=== PATIENT | male | born 1965 | race Caucasian/White ===

== ENCOUNTER 2021-10-23 11:42 | Outpatient (CLI) | payer BC, SELFPAY ==
[2021-10-23 22:02] LABS: Chloride* 101 mmol/L (96-114); Potassium* 4.5 mmol/L (3.6-5.1); Sodium* 139 mmol/L (135-149)
[2021-10-23 22:05] LABS: Blood Urea Nitrogen* 17 mg/dL (7-30); Calcium* 9.5 mg/dL (8.4-10.6); Carbon Dioxide* 25 mmol/L (20-32); Creatinine* 0.9 mg/dL (0.5-1.5); Estimated Glomerular Filt Rate 100 ml/min; Glucose* 85 mg/dL (60-115)
[2021-10-23 22:08] LABS: Creatinine Urine 41.8 mg/dL
[2021-10-23 22:12] LABS: Microalbumin Creatinine Ratio 40 mg/g (0-30); Microalbumin Urine 2 mg/dL
[2021-10-23 23:00] LABS: Uric Acid* 8.2 mg/dL (2.2-8.4)
== END 2021-10-23 11:43 | disposition home or self-care (01) ==
PROVIDERS: PCP Physician Assistant Medical; Visit Provider Physician Assistant Medical
DX: Z00.00 Encounter for general adult medical examination without abnormal findings (principal); I10 Essential (primary) hypertension; M10.9 Gout, unspecified; Z13.29 Encounter for screening for other suspected endocrine disorder
CPT/HCPCS: 80048; 82043; 82570; 84443; 84550

== ENCOUNTER 2022-01-26 14:49 | Outpatient (CLI) | payer OTHER, SELFPAY ==
--- NOTE | 2022-01-26 15:00 | CRLHL7_ITS ---
For Patients: As a result of the Century Cures Act, medical imaging exams and procedure reports are released immediately into your electronic medical record. You may view this report before your referring provider. If you have questions, please contact your health care provider. INDICATION: HTN AND SINGLE KIDNEY (LT) TECHNIQUE: Grayscale, color Doppler and power Doppler evaluation of the left renal artery performed. COMPARISON: None available FINDINGS: BILATERAL RENAL ARTERY DUPLEX ULTRASOUND ABDOMINAL AORTA: Peak systolic velocity = 151 cm/s. No aortic aneurysm. RIGHT KIDNEY: Absent. LEFT KIDNEY: 14.1 cm in length. There is no hydronephrosis. Peak systolic velocity = 159 cm/second Renal artery to aortic peak systolic velocity ratio = 1.05 Resistive indices: Less than 0.6 Renal vein = patent IMPRESSION: No evidence of significant renal artery stenosis regarding the solitary left kidney. Dictated by Terence Kat MD @ 01/29/2022 8:50:03 AM (Electronically Signed)
--- NOTE | 2022-01-26 16:00 | CRLHL7_ITS ---
For Patients: As a result of the Century Cures Act, medical imaging exams and procedure reports are released immediately into your electronic medical record. You may view this report before your referring provider. If you have questions, please contact your health care provider. INDICATION: Thyroid lump COMPARISON: none TECHNIQUE: Church scale and color Doppler images were acquired of the thyroid gland. FINDINGS: The thyroid gland demonstrates normal uniform echogenicity and has a smooth outer contour. The right lobe measures 4.9 x 1.5 x 1.6 cm and the left lobe measures 5.0 x 1.8 x 1.7 cm in size. The isthmus measures 4 millimeters. There are no suspicious masses or nodules. The color Doppler images demonstrate normal vascularity. There is no evidence of cervical lymphadenopathy or parathyroid mass. IMPRESSION: Normal thyroid ultrasound. No thyroid nodule. Dictated by Terence Kat MD @ 01/28/2022 12:34:14 PM (Electronically Signed)
== END 2022-01-26 14:50 | disposition home or self-care (01) ==
PROVIDERS: PCP Physician Assistant Medical; Visit Provider Physician Assistant Medical
DX: R22.1 Localized swelling, mass and lump, neck (principal); I10 Essential (primary) hypertension; Z90.5 Acquired absence of kidney
CPT/HCPCS: 76536; 76775; 93975

== ENCOUNTER 2022-05-03 09:07 | Outpatient (CLI) | payer OTHER, SELFPAY ==
[2022-05-03 13:58] LABS: Microalbumin Creatinine Ratio 10 mg/g (0-30); Microalbumin Urine 1 mg/dL
[2022-05-03 14:01] LABS: PSA Screen* 1.15 ng/mL (0.10-4.00)
== END 2022-05-03 09:08 | disposition home or self-care (01) ==
PROVIDERS: PCP Physician Assistant Medical; Visit Provider Physician Assistant Medical
DX: Z00.00 Encounter for general adult medical examination without abnormal findings (principal); I10 Essential (primary) hypertension; M10.9 Gout, unspecified; Z90.5 Acquired absence of kidney; Z12.5 Encounter for screening for malignant neoplasm of prostate
CPT/HCPCS: 82043; 82570; 84153

== ENCOUNTER 2022-05-15 12:43 | Outpatient (CLI) | payer OTHER, SELFPAY ==
--- NOTE | 2022-05-15 13:00 | CRLHL7_ITS ---
For Patients: As a result of the Century Cures Act, medical imaging exams and procedure reports are released immediately into your electronic medical record. You may view this report before your referring provider. If you have questions, please contact your health care provider. INDICATION: Lung cancer screening. History of smoking. TECHNIQUE: Low-dose lung cancer screening non-contrast CT chest. Dose reduction techniques were used. COMPARISON: None. FINDINGS: NODULES: 9 mm ground-glass nodule lingular left upper lobe of the lung image 111 series 6 could be infectious or inflammatory in nature. LUNGS AND PLEURA: Slight curvilinear fibrosis anteromedial right middle lobe of the lung. MEDIASTINUM: Normal. CORONARY ARTERY CALCIFICATION: Present. LIMITED UPPER ABDOMEN: Nonvisualization of the right kidney. This could be on a congenital or postsurgical basis. An ectopic kidney could not be excluded. MUSCULOSKELETAL: Minor spurring lower thoracic/upper lumbar spine. IMPRESSION: 9 mm largely ground-glass nodule lingular left upper lobe of the lung may be infectious or inflammatory in nature. LUNG-RADS CATEGORY: 3: Probably benign. (1-2% risk of malignancy) -Solid nodule(s): Greater than or equal to 6 mm to <8 mm at baseline; or new nodule 4 mm to <6 mm -Sub solid nodule(s): Greater than or equal to 6 mm total diameter with solid component <6 mm; or new <6 mm total diameter -Ground glass nodule(s): Greater than or equal to [address] or new RADIOLOGIST RECOMMENDATION: Low-dose CT chest in 6 months. Please note that all CT scans at this facility use dose modulation, iterative reconstruction, and/or weight-based dosing when appropriate to reduce radiation dose to as low as reasonably achievable. Dictated by Eduard Oviedo MD @ 05/16/2022 9:38:39 AM (Electronically Signed)
--- NOTE | 2022-05-15 13:00 | CRLHL7_ITS ---
For Patients: As a result of the Century Cures Act, medical imaging exams and procedure reports are released immediately into your electronic medical record. You may view this report before your referring provider. If you have questions, please contact your health care provider. INDICATION: Neck mass. TECHNIQUE: CT of the neck soft tissues performed with IV contrast. Contrast: 100 cc Omnipaque 350. COMPARISON: Thyroid ultrasound 01/26/2022. FINDINGS: The nasopharynx, oropharynx and hypopharynx appear unremarkable. The supraglottic, glottic and infraglottic spaces are preserved. The parotid and submandibular glands appear unremarkable. The thyroid gland is normal. No lymphadenopathy identified. The visualized major vascular structures appear intact. The visualized intracranial components appear grossly intact. Visualized orbits and contents appear unremarkable. Mild paranasal sinus mucosal disease. Scattered subsegmental atelectasis within the visualized lung apices. Mild spondylosis of the cervical spine. IMPRESSION: No evident mass or lymphadenopathy within the neck. Please note that all CT scans at this facility use dose modulation, iterative reconstruction, and/or weight-based dosing when appropriate to reduce radiation dose to as low as reasonably achievable. Dictated by Julio César Stokes MD @ 05/16/2022 4:15:50 PM (Electronically Signed)
== END 2022-05-15 12:44 | disposition home or self-care (01) ==
LOC: CT 12:44
PROVIDERS: PCP Physician Assistant Medical; Visit Provider Physician Assistant Medical
DX: R22.1 Localized swelling, mass and lump, neck; Z12.2 Encounter for screening for malignant neoplasm of respiratory organs
CPT/HCPCS: 70491; 71271; Q9967

== ENCOUNTER 2022-11-13 15:45 | Outpatient (CLI) | payer OTHER, SELFPAY ==
--- NOTE | 2022-11-13 16:00 | CRLHL7_ITS ---
For Patients: As a result of the Century Cures Act, medical imaging exams and procedure reports are released immediately into your electronic medical record. You may view this report before your referring provider. If you have questions, please contact your health care provider. Indication: Follow up nodule Technique: Noncontrast CT chest Please note that all CT scans at this facility use dose modulation, iterative reconstruction, and/or weight-based dosing when appropriate to reduce radiation dose to as low as reasonably achievable. Comparison: 05/15/2022 Findings: Visualized thyroid gland is normal. No mediastinal, hilar or axillary adenopathy. Mild coronary artery calcifications. Upper abdomen is unremarkable. There is no hiatal hernia. No pleural or pericardial effusion. A small focus of scarring is present within the inferior lingula. This appears more scar-like when compared to the prior study. There are a few tiny 2 millimeter or less nodules present bilaterally and unchanged. Impression: No suspicious pulmonary nodule. Recommend continued yearly low-dose screening chest CT follow-up in October 2023. Please note that all CT scans at this facility use dose modulation, iterative reconstruction, and/or weight-based dosing when appropriate to reduce radiation dose to as low as reasonably achievable. Dictated by Terence Kat MD @ 11/14/2022 9:25:26 AM (Electronically Signed)
== END 2022-11-13 15:46 | disposition home or self-care (01) ==
LOC: CT 15:47
PROVIDERS: PCP Physician Assistant Medical; Visit Provider Physician Assistant Medical
DX: R91.1 Solitary pulmonary nodule (principal)
CPT/HCPCS: 71250

== ENCOUNTER 2023-10-25 09:00 | Outpatient (CLI) | payer OTHER, SELFPAY | END 2023-10-25 09:01 | disposition home or self-care (01) | LOC: NFLDREF 10-29 15:55 | PROVIDERS: PCP Physician Assistant Medical; Referring Provider Physician Assistant Medical; Visit Provider Physician Assistant Medical | DX: I10 Essential (primary) hypertension (principal); E07.9 Disorder of thyroid, unspecified; I78.0 Hereditary hemorrhagic telangiectasia; Z11.59 Encounter for screening for other viral diseases; Z12.5 Encounter for screening for malignant neoplasm of prostate | CPT/HCPCS: 80053; 80061; 84443; 86703; 86803; 87086; G0103 ==

== ENCOUNTER 2023-12-03 16:11 | Outpatient (CLI) | payer OTHER, SELFPAY ==
--- NOTE | 2023-12-03 16:45 | CRLHL7_ITS ---
For Patients: As a result of the Century Cures Act, medical imaging exams and procedure reports are released immediately into your electronic medical record. You may view this report before your referring provider. If you have questions, please contact your health care provider. INDICATION: Lung cancer screening. TECHNIQUE: Noncontrast CT images of the chest. COMPARISON: CT chest 11/13/2022. FINDINGS: No focal consolidation, pleural effusion, or pneumothorax. Stable 3 mm solid nodule right lower lobe (series 4 image 123). Stable 4 mm solid nodule right lower lobe (series 4 image 129). Few additional punctate solid nodules in the right lower lobe. Stable 3 mm solid nodule left lower lobe (series 4 image 116). The heart size is normal. No pericardial effusion. Coronary artery atherosclerotic calcifications. No mediastinal or hilar lymphadenopathy. Colonic diverticulosis. Borderline diffuse hepatic steatosis. Multilevel thoracic spondylosis. No aggressive osseous lesions. IMPRESSION: Small pulmonary nodules. Lung rads category 2, benign. Continue annual screening with low-dose chest CT in 12 months. Please note that all CT scans at this facility use dose modulation, iterative reconstruction, and/or weight-based dosing when appropriate to reduce radiation dose to as low as reasonably achievable. Dictated by Ryder Jacobo MD @ 12/04/2023 7:43:23 AM (Electronically Signed)
== END 2023-12-03 16:12 | disposition home or self-care (01) ==
LOC: CT 16:11
PROVIDERS: PCP Physician Assistant Medical; Visit Provider Physician Assistant Medical
DX: Z12.2 Encounter for screening for malignant neoplasm of respiratory organs (principal); R91.8 Other nonspecific abnormal finding of lung field; Z87.891 Personal history of nicotine dependence
CPT/HCPCS: 71271

== ENCOUNTER 2023-12-06 15:39 | Outpatient (CLI) | payer OTHER, SELFPAY ==
--- NOTE | 2023-12-06 16:45 | CRLHL7_ITS ---
For Patients: As a result of the Century Cures Act, medical imaging exams and procedure reports are released immediately into your electronic medical record. You may view this report before your referring provider. If you have questions, please contact your health care provider. INDICATION: Hypertension, absent right kidney COMPARISON: None. TECHNIQUE: Church-scale, color, and duplex Doppler ultrasound of the left kidney, renal artery and renal vein. FINDINGS: RIGHT: Absent. LEFT: Parenchyma: Normal echogenicity. Normal thickness. Mild lobation. Renal length: Compensatory hypertrophy, 14.6 cm Cyst: None. Mass: None. Calculi: None. Urinary tract: Not dilated. The main renal artery is patent with a brisk arterial upstroke on duplex Doppler with a maximum peak systolic velocity of 200 cm/s. The renal artery to aorta ratio is 2.3. The intrarenal arcuate artery resistive indices range from 0.56 to 0.61. The renal vein is patent. The upper abdominal aorta is patent with a normal waveform and a peak systolic velocity of 87 cm/s. IMPRESSION: 1. Elevated peak systolic velocity in the distal left renal artery of 200 centimeters/second. The renal artery to aorta ratio is 2.3, normal. No parenchymal compromise. 2. Sonographically, criteria are not technically met for renal artery stenosis, but it may be prudent to be more cautious given the patient`s solitary left kidney. Dictated by Haven Hamilton MD @ 12/09/2023 11:10:28 AM (Electronically Signed)
== END 2023-12-06 15:40 | disposition home or self-care (01) ==
LOC: US 15:40
PROVIDERS: PCP Physician Assistant Medical; Visit Provider Physician Assistant Medical
DX: I10 Essential (primary) hypertension (principal); Z90.5 Acquired absence of kidney
CPT/HCPCS: 76775; 93975

== ENCOUNTER 2023-12-09 10:58 | Outpatient (CLI) | payer OTHER, SELFPAY ==
--- NOTE | 2023-12-09 11:56 | W.ANESCHARGE ---
Anesthesia Charges Start Date/Time Anesthesia Start Date: 12/09/23 Anesthesia Start Time: 11:28 Stop Date/Time Anesthesia Stop Date: 12/09/23 Anesthesia Stop Time: 11:54
--- NOTE | 2023-12-09 12:09 | W.ANESCHARGE ---
Anesthesia Charges Start Date/Time Anesthesia Start Date: 12/09/23 Anesthesia Start Time: 11:28 Stop Date/Time Anesthesia Stop Date: 12/09/23 Anesthesia Stop Time: 11:54
== END 2023-12-09 10:59 | disposition home or self-care (01) ==
LOC: OP CLINIC 10:58
PROVIDERS: PCP Physician Assistant Medical; Visit Provider Internal Medicine
DX: Z12.11 Encounter for screening for malignant neoplasm of colon (principal); D12.3 Benign neoplasm of transverse colon; K64.9 Unspecified hemorrhoids; K57.30 Diverticulosis of large intestine without perforation or abscess without bleeding; Z86.010 Personal history of colon polyps
CPT/HCPCS: 00811; 45385; 88305; J2704

== ENCOUNTER 2024-01-06 18:02 | Outpatient (CLI) | payer OTHER, SELFPAY | END 2024-01-06 18:03 | disposition home or self-care (01) | LOC: NFLDREF 01-09 11:27 | PROVIDERS: PCP Physician Assistant Medical; Referring Provider Physician Assistant Medical; Visit Provider Family Medicine | DX: R50.9 Fever, unspecified (principal); D69.6 Thrombocytopenia, unspecified; I10 Essential (primary) hypertension; R03.0 Elevated blood-pressure reading, without diagnosis of hypertension; D72.819 Decreased white blood cell count, unspecified | CPT/HCPCS: 87086 ==

== ENCOUNTER 2024-01-07 11:13 | Outpatient (CLI) | payer OTHER, SELFPAY | END 2024-01-07 11:14 | disposition home or self-care (01) | PROVIDERS: PCP Physician Assistant Medical; Visit Provider Family Medicine | DX: R50.9 Fever, unspecified (principal) | CPT/HCPCS: 86618; 87040; 87468; 87469; 87484; 87798 ==

== ENCOUNTER 2024-01-10 15:13 | Outpatient (CLI) | payer OTHER, SELFPAY ==
--- NOTE | 2024-01-10 15:30 | CRLHL7_ITS ---
For Patients: As a result of the Century Cures Act, medical imaging exams and procedure reports are released immediately into your electronic medical record. You may view this report before your referring provider. If you have questions, please contact your health care provider. INDICATION: Rule out renal artery stenosis; hypertension. COMPARISON: Ultrasound examination of left kidney and duplex ultrasound evaluation left renal artery 01/26/2022. TECHNIQUE: MR angio abdominal aorta and left renal artery; precontrast T1 and T2 weighted imaging; T2 haste imaging; postcontrast imaging; 24 cc of dotarem contrast was injected. FINDINGS: The right kidney is absent. Normal-appearing left kidney with compensatory hypertrophy. Single renal artery on the left without any evidence of renal artery stenosis. Single renal vein on the left without any abnormalities. No focal hepatic or splenic abnormality. No pancreatic pathology. Gallbladder is unremarkable. No adrenal pathology. No retroperitoneal lymphadenopathy. No evidence of abdominal ascites. IMPRESSION: 1. Right kidney is absent. 2. The left kidney is unremarkable. 3. Single renal artery on the left without any evidence of renal artery stenosis. Dictated by Denver Ayers MD @ 01/13/2024 9:45:42 AM (Electronically Signed)
== END 2024-01-10 15:14 | disposition home or self-care (01) ==
LOC: MRI 15:14
PROVIDERS: PCP Physician Assistant Medical; Visit Provider Physician Assistant Medical
DX: I10 Essential (primary) hypertension (principal); Z90.5 Acquired absence of kidney
CPT/HCPCS: 74185; A9575

== ENCOUNTER 2024-06-11 09:18 | Outpatient (CLI) | payer OTHER, SELFPAY | END 2024-06-11 09:19 | disposition home or self-care (01) | LOC: LKVREF 09:20 | PROVIDERS: PCP Physician Assistant Medical; Visit Provider Physician Assistant Medical | DX: I10 Essential (primary) hypertension (principal); D69.6 Thrombocytopenia, unspecified; N39.0 Urinary tract infection, site not specified | CPT/HCPCS: 80053; 87086 ==

== ENCOUNTER 2024-12-21 16:13 | Outpatient (CLI) | payer OTHER, SELFPAY ==
--- NOTE | 2024-12-21 16:45 | CRLHL7_ITS ---
For Patients: As a result of the Century Cures Act, medical imaging exams and procedure reports are released immediately into your electronic medical record. You may view this report before your referring provider. If you have questions, please contact your health care provider. INDICATION: Lung cancer screening. TECHNIQUE: Low-dose lung cancer screening non-contrast CT chest. Dose reduction techniques were used. COMPARISON: CT 12/03/2023 FINDINGS: NODULES: Small nodules appear stable. LUNGS AND PLEURA: Normal. MEDIASTINUM: Normal. CORONARY ARTERY CALCIFICATION: Present. LIMITED UPPER ABDOMEN: Normal. MUSCULOSKELETAL: Normal. IMPRESSION: 1. Stable exam. LUNG-RADS CATEGORY: 2: Benign. RADIOLOGIST RECOMMENDATION: Continue annual screening, if eligible, with low-dose CT chest in 12 months. Please note that all CT scans at this facility use dose modulation, iterative reconstruction, and/or weight-based dosing when appropriate to reduce radiation dose to as low as reasonably achievable. Dictated by Bonita Lang MD @ 12/22/2024 10:32:32 AM (Electronically Signed)
== END 2024-12-21 16:14 | disposition home or self-care (01) ==
LOC: CT 16:14
PROVIDERS: PCP Physician Assistant Medical; Visit Provider Physician Assistant Medical
DX: Z12.2 Encounter for screening for malignant neoplasm of respiratory organs (principal); Z87.891 Personal history of nicotine dependence; R91.1 Solitary pulmonary nodule
CPT/HCPCS: 71271

== ENCOUNTER 2025-03-15 08:57 | Outpatient (CLI) | payer OTHER, SELFPAY | END 2025-03-15 08:58 | disposition home or self-care (01) | LOC: NFLDREF 03-19 16:50 | PROVIDERS: PCP Physician Assistant Medical; Referring Provider Physician Assistant Medical; Visit Provider Physician Assistant Medical | DX: I10 Essential (primary) hypertension (principal); E78.5 Hyperlipidemia, unspecified | CPT/HCPCS: 80053; 80061 ==